=== PATIENT | male | born 1985 | race Caucasian/White ===

== ENCOUNTER 2017-05-08 13:49 | Emergency (ER) | payer SELFPAY ==
[~2017-05-08] VITALS: Ht 167.6 cm; Wt 79.0 kg
[~2017-05-08 13:49] MED LIST: AMOXICILLIN500 MG PO; LORTAB 7.5-3251 TAB PO; MOTRIN800 MG PO; PHENERGAN12.5 MG/TA PO
[2017-05-08 16:43] LABS: HEMATOCRIT 45.8 % (39.0-50.0); HEMOGLOBIN 15.2 g/dl (14.0-18.0); IMMATURE GRANULOCYTES 0.4 % (0.0-1.0); MEAN CELL VOLUME 88.4 fL CALC (80.0-100.0); MEAN CORPUSCULAR HGB 29.3 pG CALC (26.0-32.0); MEAN CORPUSCULAR HGB CONC 33.2 g/L CALC (32.0-36.0); NEUT# 2.78 thou/uL (1.82-7.42); RED BLOOD COUNT 5.18 mill/uL (4.70-6.10); RED CELL DISTRI WIDTH 13.4 % (11.5-15.5)
[2017-05-08 16:44] LABS: URINE BILIRUBIN - DIPSTICK NEGATIVE (NEGATIVE); URINE BLOOD DIPSTICK NEGATIVE (NEGATIVE); URINE COLOR YELLOW; URINE GLUCOSE - DIPSTICK NEGATIVE (NEGATIVE); URINE KETONE NEGATIVE (NEGATIVE); URINE LEUK ESTERASE NEGATIVE (NEGATIVE); URINE NITRITE - DIPSTICK NEGATIVE (Negative); URINE PH 6.5 (4.5-8.0); URINE PROTEIN - DIPSTICK NEGATIVE (NEG-TRACE); URINE SPECIFIC GRAVITY <=1.005; URINE UROBILINOGEN - DIPSTICK 0.2 E.U./dL (0.2)
[2017-05-08 16:48] LABS: URINE CLARITY CLEAR
[2017-05-08 16:57] LABS: ALBUMIN 4.6 g/dL (3.2-5.0); ALKALINE PHOSPHATASE 62 u/l (38-126); ANION GAP 17 (6-22 (CALC)); BILIRUBIN, TOTAL 0.9 mg/dL (0.0-1.4); BUN 10 mg/dL (9-20); BUN/CREATININE RATIO 10 (12-20 (CALC)); CALCIUM 9.9 mg/dL (8.4-10.2); CARBON DIOXIDE 27 mmol/l (22-30); CHLORIDE 101 mmol/l (95-108); GFR > 60 ML/MIN (>=60 (CALC)); GFR FOR AFR.AMER. > 60 ML/MIN (>=60 (CALC)); GLUCOSE 81 mg/dL (75-110); LIPASE 127 u/l (23-300); POTASSIUM 4.2 mmol/l (3.5-5.1); SGOT/AST 23 u/l (17-59); SGPT/ALT 25 u/l (21-72); SODIUM 141 mmol/l (137-146); TOTAL PROTEIN 7.4 g/dL (6.3-8.2)
[2017-05-08 16:59] LABS: INFLUENZA A NONE DETECTED (NONE DETECT); INFLUENZA B NONE DETECTED (NONE DETECT)
[2017-05-08 18:02] VITALS: BP 134/77
== END 2017-05-08 18:09 | disposition home or self-care (01) | DRG 153 ==
LOC: ED 13:49
PROVIDERS: Family Medicine
DX: J06.9 Acute upper respiratory infection, unspecified (principal); F17.290 Nicotine dependence, other tobacco product, uncomplicated; K52.9 Noninfective gastroenteritis and colitis, unspecified; R10.31 Right lower quadrant pain; R50.9 Fever, unspecified; R11.2 Nausea with vomiting, unspecified; R05 Cough; R07.81 Pleurodynia
CPT/HCPCS: Q9967

== ENCOUNTER 2017-05-12 17:49 | Emergency (ER) | payer SELFPAY ==
[~2017-05-12] VITALS: Ht 167.6 cm; Wt 79.0 kg
[2017-05-12 18:28] VITALS: BP 112/77
== END 2017-05-12 19:28 | disposition left against medical advice (07) | DRG 951 ==
LOC: ED 17:49 → LWOBS 19:28
DX: Z91.19 Patient's noncompliance with other medical treatment and regimen (principal)

== ENCOUNTER 2017-08-16 17:37 | Emergency (ER) | payer SELFPAY ==
[~2017-08-16] VITALS: Ht 167.6 cm; Wt 77.3 kg
[2017-08-16 18:11] LABS: HEMATOCRIT 46.8 % (39.0-50.0); HEMOGLOBIN 15.5 g/dl (14.0-18.0); IMMATURE GRANULOCYTES 0.3 % (0.0-1.0); MEAN CELL VOLUME 88.6 fL CALC (80.0-100.0); MEAN CORPUSCULAR HGB 29.4 pG CALC (26.0-32.0); MEAN CORPUSCULAR HGB CONC 33.1 g/L CALC (32.0-36.0); NEUT# 7.12 thou/uL (1.82-7.42); RED BLOOD COUNT 5.28 mill/uL (4.70-6.10); RED CELL DISTRI WIDTH 13.1 % (11.5-15.5)
[2017-08-16 18:32] LABS: ALBUMIN 4.5 g/dL (3.2-5.0); ALKALINE PHOSPHATASE 63 u/l (38-126); ANION GAP 19 (6-22 (CALC)); BILIRUBIN, TOTAL 1.1 mg/dL (0.0-1.4); BUN 14 mg/dL (9-20); BUN/CREATININE RATIO 13 (12-20 (CALC)); CARBON DIOXIDE 28 mmol/l (22-30); CHLORIDE 102 mmol/l (95-108); CREATININE 1.1 mg/dL (0.7-1.3); GFR > 60 ML/MIN (>=60 (CALC)); GFR FOR AFR.AMER. > 60 ML/MIN (>=60 (CALC)); LIPASE 85 u/l (23-300); SGOT/AST 29 u/l (17-59); SGPT/ALT 32 u/l (21-72); SODIUM 145 mmol/l (137-146); TOTAL PROTEIN 8.2 g/dL (6.3-8.2)
[2017-08-16] MEDS ORDERED: ONDANSETRON4 MG PO (18:42)
[2017-08-16 18:54] LABS: URINE BILIRUBIN - DIPSTICK NEGATIVE (NEGATIVE); URINE BLOOD DIPSTICK NEGATIVE (NEGATIVE); URINE COLOR YELLOW; URINE GLUCOSE - DIPSTICK NEGATIVE (NEGATIVE); URINE KETONE NEGATIVE (NEGATIVE); URINE LEUK ESTERASE NEGATIVE (NEGATIVE); URINE NITRITE - DIPSTICK NEGATIVE (Negative); URINE PH 5.5 (4.5-8.0); URINE PROTEIN - DIPSTICK NEGATIVE (NEG-TRACE); URINE SPECIFIC GRAVITY >=1.030; URINE UROBILINOGEN - DIPSTICK 0.2 E.U./dL (0.2)
[2017-08-16 18:55] LABS: URINE CLARITY CLEAR
[2017-08-16 19:06] VITALS: BP 84/89
== END 2017-08-16 19:11 | disposition home or self-care (01) | DRG 392 ==
LOC: ED 17:37
PROVIDERS: Family Medicine
DX: R10.11 Right upper quadrant pain (principal); R10.12 Left upper quadrant pain; R11.0 Nausea

== ENCOUNTER 2017-10-22 10:02 | Emergency (ER) | payer SELFPAY ==
[~2017-10-22] VITALS: Ht 167.6 cm; Wt 75.0 kg
[~2017-10-22 10:02] MED LIST changes: +ONDANSETRON4 MG PO
[2017-10-22 10:36] LABS: IMMATURE GRANULOCYTES 0.2 % (0.0-1.0); MEAN CELL VOLUME 85.9 fL CALC (80.0-100.0); MEAN CORPUSCULAR HGB 29.3 pG CALC (26.0-32.0); MEAN CORPUSCULAR HGB CONC 34.1 g/L CALC (32.0-36.0); NEUT# 1.85 thou/uL (1.82-7.42); RED BLOOD COUNT 5.12 mill/uL (4.70-6.10); RED CELL DISTRI WIDTH 13.2 % (11.5-15.5)
[2017-10-22 11:00] LABS: URINE BILIRUBIN - DIPSTICK NEGATIVE (NEGATIVE); URINE BLOOD DIPSTICK NEGATIVE (NEGATIVE); URINE COLOR YELLOW; URINE GLUCOSE - DIPSTICK NEGATIVE (NEGATIVE); URINE KETONE NEGATIVE (NEGATIVE); URINE LEUK ESTERASE NEGATIVE (NEGATIVE); URINE NITRITE - DIPSTICK NEGATIVE (Negative); URINE PROTEIN - DIPSTICK NEGATIVE (NEG-TRACE)
[2017-10-22 11:02] LABS: URINE CLARITY CLEAR
[2017-10-22 11:04] LABS: ALBUMIN 4.1 g/dL (3.2-5.0); ALKALINE PHOSPHATASE 57 u/l (38-126); ANION GAP 15 (6-22 (CALC)); BILIRUBIN, TOTAL 0.9 mg/dL (0.0-1.4); BUN 11 mg/dL (9-20); BUN/CREATININE RATIO 13 (12-20 (CALC)); CARBON DIOXIDE 24 mmol/l (22-30); CHLORIDE 105 mmol/l (95-108); CREATININE 0.9 mg/dL (0.7-1.3); GFR > 60 ML/MIN (>=60 (CALC)); GFR FOR AFR.AMER. > 60 ML/MIN (>=60 (CALC)); LIPASE 95 u/l (23-300); POTASSIUM 3.8 mmol/l (3.5-5.1); SGOT/AST 19 u/l (17-59); SGPT/ALT 28 u/l (21-72); SODIUM 140 mmol/l (137-146); TOTAL PROTEIN 7.2 g/dL (6.3-8.2)
[2017-10-22] MEDS ORDERED: COLACE100 MG PO (11:17)
[2017-10-22] MEDS ORDERED: PROCTOFOAM HC10 GM RE (11:17)
[2017-10-22 11:45] VITALS: BP 128/80
== END 2017-10-22 13:32 | disposition home or self-care (01) | DRG 395 ==
LOC: ED 10:02
PROVIDERS: Emergency Medicine
DX: K64.9 Unspecified hemorrhoids (principal); E11.9 Type 2 diabetes mellitus without complications; F17.210 Nicotine dependence, cigarettes, uncomplicated

== ENCOUNTER 2017-12-29 06:56 | Emergency (ER) | payer OTHER ==
[~2017-12-29] VITALS: Ht 167.6 cm; Wt 75.0 kg
[~2017-12-29 06:56] MED LIST changes: +COLACE100 MG PO; +PROCTOFOAM HC10 GM RE
[2017-12-29 07:47] LABS: HEMATOCRIT 47.7 % (39.0-50.0); IMMATURE GRANULOCYTES 0.4 % (0.0-5.0); MEAN CELL VOLUME 88.7 fL CALC (80.0-100.0); MEAN CORPUSCULAR HGB 29.7 pG CALC (26.0-32.0); MEAN CORPUSCULAR HGB CONC 33.5 g/L CALC (32.0-36.0); NEUT# 2.51 thou/uL (1.82-7.42); RED BLOOD COUNT 5.38 mill/uL (4.70-6.10); RED CELL DISTRI WIDTH 13.2 % (11.5-15.5)
[2017-12-29 08:00] LABS: ALBUMIN 4.4 g/dL (3.2-5.0); ALKALINE PHOSPHATASE 71 u/l (38-126); ANION GAP 16 (6-22 (CALC)); BILIRUBIN, TOTAL 0.9 mg/dL (0.0-1.4); BUN 14 mg/dL (9-20); BUN/CREATININE RATIO 13 (12-20 (CALC)); CARBON DIOXIDE 28 mmol/l (22-30); CHLORIDE 101 mmol/l (95-108); CREATININE 1.1 mg/dL (0.7-1.3); GFR > 60 ML/MIN (>=60 (CALC)); GFR FOR AFR.AMER. > 60 ML/MIN (>=60 (CALC)); SGOT/AST 19 u/l (17-59); SGPT/ALT 24 u/l (21-72); SODIUM 141 mmol/l (137-146); TOTAL PROTEIN 7.6 g/dL (6.3-8.2)
[2017-12-29] MEDS ORDERED: ONDANSETRON4 MG PO (08:31)
[2017-12-29] MEDS ORDERED: BENTYL10 MG PO (08:31)
[2017-12-29 08:46] VITALS: BP 128/91
[2017-12-29 09:05] LABS: C. DIFFICILE TOXIN A&B NEGATIVE (NEGATIVE)
== END 2017-12-29 08:53 | disposition home or self-care (01) | DRG 392 ==
LOC: ED 06:56
PROVIDERS: Emergency Medicine
DX: K52.9 Noninfective gastroenteritis and colitis, unspecified (principal); E11.9 Type 2 diabetes mellitus without complications; F17.220 Nicotine dependence, chewing tobacco, uncomplicated

== ENCOUNTER 2018-05-22 17:21 | Emergency (ER) | payer SELFPAY ==
[~2018-05-22] VITALS: Ht 167.6 cm; Wt 70.0 kg
[~2018-05-22 17:21] MED LIST changes: +BENTYL10 MG PO
[2018-05-22] MEDS ORDERED: PROVENTIL HFA IN (18:55)
[2018-05-22] MEDS ORDERED: ZITHROMAX250 MG PO (18:55)
[2018-05-22 19:10] VITALS: BP 115/81
== END 2018-05-22 19:10 | disposition home or self-care (01) | DRG 203 ==
LOC: ED 17:21
DX: J40 Bronchitis, not specified as acute or chronic (principal); F17.200 Nicotine dependence, unspecified, uncomplicated; R09.81 Nasal congestion; R05 Cough; R50.9 Fever, unspecified; R09.89 Other specified symptoms and signs involving the circulatory and respiratory systems; R51 Headache

== ENCOUNTER 2018-08-30 09:00 | Emergency (ER) | payer OTHER ==
[~2018-08-30] VITALS: Ht 167.6 cm; Wt 80.0 kg
[~2018-08-30 09:00] MED LIST changes: +PROVENTIL HFA IN; +ZITHROMAX250 MG PO
[2018-08-30 10:01] LABS: URINE BILIRUBIN - DIPSTICK NEGATIVE (NEGATIVE); URINE BLOOD DIPSTICK NEGATIVE (NEGATIVE); URINE COLOR YELLOW; URINE GLUCOSE - DIPSTICK NEGATIVE (NEGATIVE); URINE KETONE NEGATIVE (NEGATIVE); URINE LEUK ESTERASE NEGATIVE (NEGATIVE); URINE NITRITE - DIPSTICK NEGATIVE (Negative); URINE PH 5.5 (4.5-8.0); URINE PROTEIN - DIPSTICK NEGATIVE (NEG-TRACE); URINE SPECIFIC GRAVITY >=1.030; URINE UROBILINOGEN - DIPSTICK 0.2 E.U./dL (0.2)
[2018-08-30 10:04] LABS: BARBITURATES NEGATIVE (NEGATIVE); COCAINE NEGATIVE (NEGATIVE); METHADONE NEGATIVE (NEGATIVE); OXCYCODONE NEGATIVE (NEGATIVE); TETRAHYDROCANNABIONOL NEGATIVE (NEGATIVE); TRICYLIC ANTIDEPRESSANTS NEGATIVE (NEGATIVE)
[2018-08-30] MEDS ORDERED: ULTRAM50 MG PO (11:32)
[2018-08-30] MEDS ORDERED: MEDDOSEPAK PO (11:32)
[2018-08-30] MEDS ORDERED: TORADOL PO (11:32)
[2018-08-30 12:02] VITALS: BP 112/74
== END 2018-08-30 12:02 | disposition home or self-care (01) | DRG 563 ==
LOC: ED 09:00
PROVIDERS: Emergency Medicine
DX: S39.012A Strain of muscle, fascia and tendon of lower back, initial encounter (principal); E11.9 Type 2 diabetes mellitus without complications; F17.210 Nicotine dependence, cigarettes, uncomplicated; X50.0XXA Overexertion from strenuous movement or load, initial encounter

== ENCOUNTER 2018-12-07 19:15 | Emergency (ER) | payer OTHER ==
[~2018-12-07] VITALS: Ht 167.6 cm; Wt 90.0 kg
[~2018-12-07 19:15] MED LIST changes: +MEDDOSEPAK PO; +TORADOL PO; +ULTRAM50 MG PO
[2018-12-07] MEDS ORDERED: FLOXIN OTIC0.3 % AS (19:39)
[2018-12-07] MEDS ORDERED: AMOX/K CLAV875 M1 PO (19:39)
[2018-12-07] MEDS ORDERED: ULTRAM50 M1 PO (19:39)
[2018-12-07 19:42] VITALS: BP 119/87
== END 2018-12-07 19:55 | disposition home or self-care (01) | DRG 153 ==
LOC: ED 19:15
DX: H66.92 Otitis media, unspecified, left ear (principal); E11.9 Type 2 diabetes mellitus without complications; F17.220 Nicotine dependence, chewing tobacco, uncomplicated

== ENCOUNTER 2019-03-02 08:37 | Emergency (ER) | payer SELFPAY ==
[~2019-03-02] VITALS: Ht 167.6 cm; Wt 75.0 kg
[~2019-03-02 08:37] MED LIST changes: +AMOX/K CLAV875 M1 PO; +FLOXIN OTIC0.3 % AS; +ULTRAM50 M1 PO
[2019-03-02] MEDS ORDERED: ONDANSETRON4 MG PO (10:16)
[2019-03-02 10:29] VITALS: BP 115/71
== END 2019-03-02 10:29 | disposition home or self-care (01) | DRG 153 ==
LOC: ED 08:37
DX: J06.9 Acute upper respiratory infection, unspecified (principal)

== ENCOUNTER 2019-07-20 | Emergency (ER) | payer SELFPAY ==
[2019-07-20 13:44] LABS: URINE BILIRUBIN - DIPSTICK NEGATIVE (NEGATIVE); URINE BLOOD DIPSTICK NEGATIVE (NEGATIVE); URINE COLOR YELLOW; URINE GLUCOSE - DIPSTICK NEGATIVE (NEGATIVE); URINE KETONE NEGATIVE (NEGATIVE); URINE LEUK ESTERASE NEGATIVE (NEGATIVE); URINE NITRITE - DIPSTICK NEGATIVE (Negative); URINE PH 5.5 (4.5-8.0); URINE PROTEIN - DIPSTICK NEGATIVE (NEG-TRACE); URINE UROBILINOGEN - DIPSTICK 0.2 E.U./dL (0.2)
[2019-07-20 13:44] LABS: HEMATOCRIT 46.4 % (39.0-50.0); HEMOGLOBIN 15.5 g/dl (14.0-18.0); IMMATURE GRANULOCYTES 0.3 % (0.0-5.0); MEAN CELL VOLUME 88.2 fL CALC (80.0-100.0); MEAN CORPUSCULAR HGB 29.5 pG CALC (26.0-32.0); MEAN CORPUSCULAR HGB CONC 33.4 g/dL CAL (32.0-36.0); NEUT# 3.49 thou/uL (1.82-7.42); RED BLOOD COUNT 5.26 mill/uL (4.70-6.10); RED CELL DISTRI WIDTH 12.6 % (11.5-15.5)
[2019-07-20 14:04] LABS: ALBUMIN 4.2 g/dL (3.2-5.0); ALKALINE PHOSPHATASE 57 u/l (38-126); ANION GAP 11 (6-22 (CALC)); BILIRUBIN, TOTAL 1.2 mg/dL (0.0-1.4); BUN 13 mg/dL (9-20); BUN/CREATININE RATIO 12 (12-20 (CALC)); CARBON DIOXIDE 29 mmol/l (22-30); CHLORIDE 103 mmol/l (95-108); CREATININE 1.1 mg/dL (0.7-1.3); GFR > 60 ML/MIN (>=60 (CALC)); GFR FOR AFR.AMER. > 60 ML/MIN (>=60 (CALC)); SGOT/AST 22 u/l (17-59); SODIUM 139 mmol/l (137-146); TOTAL PROTEIN 7.3 g/dL (6.3-8.2)
[2019-07-20] MEDS ORDERED: MIRALAX3350 N1 PO ×2 (14:42)
[2019-07-20] MEDS ORDERED: ONDANSETRON4 MG PO ×2 (14:42)
== END 2019-07-20 14:58 | disposition home or self-care (01) | DRG 392 ==
PROVIDERS: Emergency Medicine
DX: K59.00 Constipation, unspecified (principal); E11.9 Type 2 diabetes mellitus without complications; F17.200 Nicotine dependence, unspecified, uncomplicated

== ENCOUNTER 2019-11-11 11:03 | Emergency (ER) | payer OTHER ==
[~2019-11-11] VITALS: Ht 167.6 cm; Wt 79.0 kg
[~2019-11-11 11:03] MED LIST changes: +MIRALAX3350 N1 PO
[2019-11-11 12:09] LABS: HEMATOCRIT 44.6 % (39.0-50.0); HEMOGLOBIN 14.7 g/dl (14.0-18.0); IMMATURE GRANULOCYTES 0.4 % (0.0-5.0); MEAN CELL VOLUME 88.1 fL CALC (80.0-100.0); MEAN CORPUSCULAR HGB 29.1 pG CALC (26.0-32.0); NEUT# 2.71 thou/uL (1.82-7.42); RED BLOOD COUNT 5.06 mill/uL (4.70-6.10); RED CELL DISTRI WIDTH 12.9 % (11.5-15.5)
[2019-11-11 12:28] LABS: ALBUMIN 4.4 g/dL (3.2-5.0); ALKALINE PHOSPHATASE 61 u/l (38-126); ANION GAP 10 (6-22 (CALC)); BILIRUBIN, TOTAL 0.9 mg/dL (0.0-1.4); BUN 10 mg/dL (9-20); BUN/CREATININE RATIO 11 (12-20 (CALC)); CARBON DIOXIDE 26 mmol/l (22-30); CHLORIDE 104 mmol/l (95-108); CREATININE 0.9 mg/dL (0.7-1.3); GFR > 60 ML/MIN (>=60 (CALC)); GFR FOR AFR.AMER. > 60 ML/MIN (>=60 (CALC)); POTASSIUM 3.8 mmol/l (3.5-5.1); SGOT/AST 31 u/l (17-59); SODIUM 136 mmol/l (137-146); TOTAL PROTEIN 7.3 g/dL (6.3-8.2)
[2019-11-11 12:32] LABS: ACT PARTIAL THROMBO TIME 26.3 SECONDS (20.0-32.5)
[2019-11-11 12:37] LABS: D-DIMER 0.17 mg/L (0.19-0.60)
[2019-11-11 13:40] VITALS: BP 136/89
== END 2019-11-11 13:40 | disposition home or self-care (01) | DRG 153 ==
LOC: ED 11:03
DX: J06.9 Acute upper respiratory infection, unspecified (principal); R73.03 Prediabetes; F17.290 Nicotine dependence, other tobacco product, uncomplicated; Z20.828 Contact with and (suspected) exposure to other viral communicable diseases

== ENCOUNTER 2020-01-09 02:39 | Emergency (ER) | payer OTHER ==
[~2020-01-09] VITALS: Ht 165.1 cm; Wt 77.2 kg
[2020-01-09 03:24] LABS: HEMOGLOBIN 16.2 g/dl (14.0-18.0); IMMATURE GRANULOCYTES 0.2 % (0.0-5.0); MEAN CELL VOLUME 88.2 fL CALC (80.0-100.0); MEAN CORPUSCULAR HGB 28.1 pG CALC (26.0-32.0); MEAN CORPUSCULAR HGB CONC 31.9 g/dL CAL (32.0-36.0); NEUT# 7.35 thou/uL (1.82-7.42); RED BLOOD COUNT 5.76 mill/uL (4.70-6.10)
[2020-01-09 03:32] LABS: HEMATOCRIT 50.8 % (39.0-50.0)
[2020-01-09 03:47] LABS: ALBUMIN 4.7 g/dL (3.2-5.0); ALKALINE PHOSPHATASE 69 u/l (38-126); AMYLASE 55 u/l (30-110); ANION GAP 15 (6-22 (CALC)); BUN 14 mg/dL (9-20); BUN/CREATININE RATIO 13 (12-20 (CALC)); CARBON DIOXIDE 28 mmol/l (22-30); CHLORIDE 101 mmol/l (95-108); CREATININE 1.1 mg/dL (0.7-1.3); GFR > 60 ML/MIN (>=60 (CALC)); GFR FOR AFR.AMER. > 60 ML/MIN (>=60 (CALC)); LIPASE 136 u/l (23-300); POTASSIUM 4.1 mmol/l (3.5-5.1); SGOT/AST 28 u/l (17-59); SODIUM 141 mmol/l (137-146); TOTAL PROTEIN 7.9 g/dL (6.3-8.2)
[2020-01-09 03:49] LABS: BILIRUBIN, TOTAL 1.3 mg/dL (0.0-1.4)
[2020-01-09 03:53] LABS: URINE BILIRUBIN - DIPSTICK NEGATIVE (NEGATIVE); URINE BLOOD DIPSTICK NEGATIVE (NEGATIVE); URINE COLOR YELLOW; URINE GLUCOSE - DIPSTICK NEGATIVE (NEGATIVE); URINE KETONE NEGATIVE (NEGATIVE); URINE LEUK ESTERASE NEGATIVE (NEGATIVE); URINE NITRITE - DIPSTICK NEGATIVE (Negative); URINE PROTEIN - DIPSTICK NEGATIVE (NEG-TRACE); URINE UROBILINOGEN - DIPSTICK 0.2 E.U./dL (0.2)
[2020-01-09] MEDS ORDERED: ONDANSETRON4 MG PO (05:59)
[2020-01-09] MEDS ORDERED: LEVAQUIN500 MG PO (05:59)
[2020-01-09 07:37] VITALS: BP 100/58
== END 2020-01-09 07:10 | disposition home or self-care (01) | DRG 195 ==
LOC: ED 02:39
DX: J18.9 Pneumonia, unspecified organism (principal); E11.9 Type 2 diabetes mellitus without complications; Z20.828 Contact with and (suspected) exposure to other viral communicable diseases
CPT/HCPCS: Q9967; S0164

== ENCOUNTER 2020-06-24 18:20 | Emergency (ER) | payer OTHER ==
[~2020-06-24] VITALS: Ht 165.1 cm; Wt 79.0 kg
[~2020-06-24 18:20] MED LIST changes: +LEVAQUIN500 MG PO
[2020-06-24 19:00] VITALS: BP 120/81
== END 2020-06-24 19:20 | disposition left against medical advice (07) | DRG 951 ==
LOC: ED 18:20 → LWOBS 19:20
DX: Z53.21 Procedure and treatment not carried out due to patient leaving prior to being seen by health care provider (principal)

== ENCOUNTER 2020-07-23 | Emergency (ER) | payer OTHER | END 2020-07-23 10:17 | disposition home or self-care (01) | DRG 204 | DX: R05 Cough (principal); J02.9 Acute pharyngitis, unspecified; R68.83 Chills (without fever); R07.89 Other chest pain; R43.8 Other disturbances of smell and taste; E11.9 Type 2 diabetes mellitus without complications; F17.200 Nicotine dependence, unspecified, uncomplicated; Z20.822 Contact with and (suspected) exposure to COVID-19 ==

== ENCOUNTER 2020-12-09 11:09 | Emergency (ER) | payer OTHER ==
[~2020-12-09] VITALS: Ht 165.1 cm; Wt 85.0 kg
[2020-12-09 11:21] VITALS: BP 122/98
[2020-12-09 12:47] LABS: HEMOGLOBIN 14.6 g/dl (14.0-18.0); IMMATURE GRANULOCYTES 0.4 % (0.0-5.0); MEAN CELL VOLUME 89.3 fL CALC (80.0-100.0); MEAN CORPUSCULAR HGB 29.4 pG CALC (26.0-32.0); NEUT# 2.64 thou/uL (1.82-7.42); RED BLOOD COUNT 4.96 mill/uL (4.70-6.10); RED CELL DISTRI WIDTH 12.8 % (11.5-15.5)
[2020-12-09 12:51] LABS: HEMATOCRIT 44.3 % (39.0-50.0)
[2020-12-09 13:02] LABS: ALBUMIN 4.3 g/dL (3.2-5.0); ALKALINE PHOSPHATASE 50 u/l (38-126); ANION GAP 14 (6-22 (CALC)); BILIRUBIN, TOTAL 0.8 mg/dL (0.0-1.4); BUN 10 mg/dL (9-20); BUN/CREATININE RATIO 11 (12-20 (CALC)); CARBON DIOXIDE 27 mmol/l (22-30); CHLORIDE 101 mmol/l (95-108); GFR > 60 ML/MIN (>=60 (CALC)); GFR FOR AFR.AMER. > 60 ML/MIN (>=60 (CALC)); LIPASE 71 u/l (23-300); POTASSIUM 3.9 mmol/l (3.5-5.1); SGOT/AST 24 u/l (17-59); SODIUM 138 mmol/l (137-146); TOTAL PROTEIN 7.3 g/dL (6.3-8.2)
== END 2020-12-09 14:20 | disposition home or self-care (01) | DRG 313 ==
LOC: ED 11:09
DX: R07.89 Other chest pain (principal); E11.9 Type 2 diabetes mellitus without complications; F17.200 Nicotine dependence, unspecified, uncomplicated; Z20.822 Contact with and (suspected) exposure to COVID-19

== ENCOUNTER 2021-01-27 06:41 | Emergency (ER) | payer OTHER ==
[~2021-01-27] VITALS: Ht 165.1 cm; Wt 70.0 kg
[2021-01-27] MEDS ORDERED: ZOFRAN4 MG/TAB PO (07:57)
[2021-01-27] MEDS ORDERED: TESSALON PERLE100 MG PO (07:57)
[2021-01-27] MEDS ORDERED: ZPAK PO (07:57)
[2021-01-27 08:04] VITALS: BP 118/74
== END 2021-01-27 08:18 | disposition home or self-care (01) | DRG 179 ==
LOC: ED 06:41
DX: U07.1 COVID-19 (principal); J40 Bronchitis, not specified as acute or chronic; E11.9 Type 2 diabetes mellitus without complications; F17.200 Nicotine dependence, unspecified, uncomplicated

== ENCOUNTER 2021-08-01 09:15 | Emergency (ER) | payer OTHER ==
[2021-08-01] VITALS (8 sets, daily range): BP systolic 103–130; BP diastolic 70–92
[~2021-08-01] VITALS: Ht 165.1 cm; Wt 75.0 kg
[~2021-08-01 09:15] MED LIST changes: +TESSALON PERLE100 MG PO; +ZOFRAN4 MG/TAB PO; +ZPAK PO
[2021-08-01 09:53] LABS: HEMATOCRIT 44.5 % (39.0-50.0); HEMOGLOBIN 14.6 g/dl (14.0-18.0); IMMATURE GRANULOCYTES 0.4 % (0.0-5.0); MEAN CELL VOLUME 89.7 fL CALC (80.0-100.0); MEAN CORPUSCULAR HGB 29.4 pG CALC (26.0-32.0); MEAN CORPUSCULAR HGB CONC 32.8 g/dL CAL (32.0-36.0); NEUT# 2.15 thou/uL (1.82-7.42); RED BLOOD COUNT 4.96 mill/uL (4.70-6.10); RED CELL DISTRI WIDTH 13.8 % (11.5-15.5)
[2021-08-01 09:54] LABS: ALBUMIN 4.4 g/dL (3.2-5.0); ALKALINE PHOSPHATASE 56 u/l (38-126); ANION GAP 12 (6-22 (CALC)); BUN 11 mg/dL (9-20); BUN/CREATININE RATIO 12 (12-20 (CALC)); CARBON DIOXIDE 26 mmol/l (22-30); CHLORIDE 104 mmol/l (95-108); GFR > 60 ML/MIN (>=60 (CALC)); GFR FOR AFR.AMER. > 60 ML/MIN (>=60 (CALC)); POTASSIUM 3.9 mmol/l (3.5-5.1); SGOT/AST 25 u/l (17-59); SODIUM 139 mmol/l (137-146); TOTAL PROTEIN 7.7 g/dL (6.3-8.2)
[2021-08-01] MEDS ORDERED: PROVENTIL108 MCG/AC PO (11:20)
[2021-08-01] MEDS ORDERED: PREDNISONE50 MG PO (11:20)
[2021-08-01] MEDS ORDERED: ZPAK PO (11:20)
== END 2021-08-01 11:34 | disposition home or self-care (01) | DRG 153 ==
LOC: ED 09:15
PROVIDERS: Family Medicine
DX: J06.9 Acute upper respiratory infection, unspecified (principal); R10.32 Left lower quadrant pain; E11.9 Type 2 diabetes mellitus without complications; F17.200 Nicotine dependence, unspecified, uncomplicated; Z20.822 Contact with and (suspected) exposure to COVID-19
CPT/HCPCS: Q9967

== ENCOUNTER 2022-01-09 08:46 | Emergency (ER) | payer SELFPAY ==
[~2022-01-09] VITALS: Ht 167.6 cm; Wt 77.1 kg
[~2022-01-09 08:46] MED LIST changes: +PREDNISONE50 MG PO; +PROVENTIL108 MCG/AC PO
[2022-01-09 08:52] VITALS: BP 118/81
[2022-01-09 09:00] VITALS: BP 113/73
[2022-01-09 09:15] VITALS: BP 114/72
[2022-01-09 09:30] VITALS: BP 113/76
[2022-01-09] MEDS ORDERED: AMOXICILLIN500 MG PO (09:33)
[2022-01-09] MEDS ORDERED: PAXLOVID PO (09:33)
[2022-01-09 10:06] VITALS: BP 113/76
== END 2022-01-09 10:19 | disposition home or self-care (01) | DRG 179 ==
LOC: ED 08:46
DX: U07.1 COVID-19 (principal); J02.9 Acute pharyngitis, unspecified; E11.9 Type 2 diabetes mellitus without complications

== ENCOUNTER 2022-04-24 22:37 | Emergency (ER) | payer SELFPAY ==
[~2022-04-24] VITALS: Ht 167.6 cm; Wt 81.8 kg
[~2022-04-24 22:37] MED LIST changes: +PAXLOVID PO
[2022-04-24 23:07] VITALS: BP 132/87
[2022-04-24 23:15] VITALS: BP 127/95
[2022-04-24] MEDS ORDERED: GENTAMICIN SULF5 ML OS (23:25)
[2022-04-24 23:30] VITALS: BP 118/86
[2022-04-24 23:45] VITALS: BP 120/89
[2022-04-25 00:18] VITALS: BP 120/89
== END 2022-04-25 00:28 | disposition home or self-care (01) | DRG 125 ==
LOC: ED 22:37
DX: S05.02XA Injury of conjunctiva and corneal abrasion without foreign body, left eye, initial encounter (principal)

== ENCOUNTER 2022-06-30 05:20 | Emergency (ER) | payer OTHER ==
[~2022-06-30] VITALS: Ht 167.6 cm; Wt 81.0 kg
[2022-06-30] VITALS (13 sets, daily range): BP systolic 112–140; BP diastolic 82–104
[~2022-06-30 05:20] MED LIST changes: +GENTAMICIN SULF5 ML OS
[2022-06-30 05:56] LABS: BASO% 0.7 % (0-3); EOS% 2.9 % (0-8); HEMATOCRIT 48.9 % (39.0-50.0); HEMOGLOBIN 15.8 g/dl (14.0-18.0); IMMATURE GRANULOCYTES 0.2 % (0.0-5.0); LYMPH% 35.4 % (15-41); MEAN CELL VOLUME 88.6 fL CALC (80.0-100.0); MEAN CORPUSCULAR HGB 28.6 pG CALC (26.0-32.0); MEAN CORPUSCULAR HGB CONC 32.3 g/dL CAL (32.0-36.0); NEUT# 2.81 thou/uL (1.82-7.42); NEUT% 51.8 % (42-76); RED BLOOD COUNT 5.52 mill/uL (4.70-6.10); RED CELL DISTRI WIDTH 13.2 % (11.5-15.5)
[2022-06-30 05:57] LABS: URINE BILIRUBIN - DIPSTICK NEGATIVE (NEGATIVE); URINE BLOOD DIPSTICK NEGATIVE (NEGATIVE); URINE COLOR YELLOW; URINE GLUCOSE - DIPSTICK NEGATIVE (NEGATIVE); URINE KETONE NEGATIVE (NEGATIVE); URINE LEUK ESTERASE NEGATIVE (NEGATIVE); URINE PROTEIN - DIPSTICK NEGATIVE (NEG-TRACE); URINE SPECIFIC GRAVITY 1.025; URINE UROBILINOGEN - DIPSTICK 0.2 E.U./dL (0.2)
[2022-06-30 05:58] LABS: URINE NITRITE - DIPSTICK NEGATIVE (Negative)
[2022-06-30 06:10] LABS: ALBUMIN 4.7 g/dL (3.2-5.0); ALKALINE PHOSPHATASE 66 u/l (38-126); AMYLASE 69 u/l (30-110); ANION GAP 13 (6-22 (CALC)); BILIRUBIN, TOTAL 0.7 mg/dL (0.2-1.3); BUN 12 mg/dL (9-20); BUN/CREATININE RATIO 11 (12-20 (CALC)); CARBON DIOXIDE 29 mmol/l (22-30); CHLORIDE 103 mmol/l (95-108); CREATININE 1.2 mg/dL (0.7-1.3); ETHYL ALCOHOL 0 mg/dl (0-30); GFR FOR AFR.AMER. > 60 ML/MIN (>=60 (CALC)); GFR OTHER RACES > 60 ML/MIN (>=60 (CALC)); LIPASE 107 u/l (23-300); POTASSIUM 4.1 mmol/l (3.5-5.1); SGOT/AST 32 u/l (17-59); SODIUM 141 mmol/l (137-146)
[2022-06-30] MEDS ORDERED: PROTONIX40 M2 PO (08:39)
== END 2022-06-30 08:55 | disposition home or self-care (01) | DRG 392 ==
LOC: ED 05:20
PROVIDERS: Emergency Medicine
DX: R10.13 Epigastric pain (principal); E11.9 Type 2 diabetes mellitus without complications
CPT/HCPCS: Q9967; S0164

== ENCOUNTER → 2022-07-28 | Day surgery (SDC) | payer OTHER ==
[~2022-07-28] MED LIST changes: +NEXIUM40 M1 PO; +PROTONIX40 M2 PO
[2022-07-28 09:06] VITALS: BP 111/79
== END | disposition home or self-care (01) | DRG 379 ==
LOC: ENDO 07:05 → ORM 08:00
PROVIDERS: ATTEND Surgery
PROC: 0DB98ZX Excision of Duodenum, Via Natural or Artificial Opening Endoscopic, Diagnostic (ICD-10-PCS; principal; 2022-07-28)
PROC: 0DB78ZX Excision of Stomach, Pylorus, Via Natural or Artificial Opening Endoscopic, Diagnostic (ICD-10-PCS; 2022-07-28)
PROC: 0DB58ZX Excision of Esophagus, Via Natural or Artificial Opening Endoscopic, Diagnostic (ICD-10-PCS; 2022-07-28)
DX: K29.51 Unspecified chronic gastritis with bleeding (principal); K29.81 Duodenitis with bleeding; K21.01 Gastro-esophageal reflux disease with esophagitis, with bleeding; K22.11 Ulcer of esophagus with bleeding

== ENCOUNTER 2022-10-13 07:25 | Emergency (ER) | payer OTHER ==
[~2022-10-13] VITALS: Ht 165.1 cm; Wt 81.6 kg
[2022-10-13 07:36] VITALS: BP 127/91
[2022-10-13 08:00] VITALS: BP 128/92
[2022-10-13 08:31] LABS: BASO% 0.9 % (0-3); EOS% 2.4 % (0-8); HEMATOCRIT 45.9 % (39.0-50.0); HEMOGLOBIN 14.8 g/dl (14.0-18.0); IMMATURE GRANULOCYTES 0.2 % (0.0-5.0); LYMPH% 26.8 % (15-41); MEAN CELL VOLUME 88.1 fL CALC (80.0-100.0); MEAN CORPUSCULAR HGB 28.4 pG CALC (26.0-32.0); MEAN CORPUSCULAR HGB CONC 32.2 g/dL CAL (32.0-36.0); MONO% 8.9 % (2-13); NEUT# 3.5 thou/uL (1.82-7.42); NEUT% 60.8 % (42-76); RED BLOOD COUNT 5.21 mill/uL (4.70-6.10)
[2022-10-13 09:40] VITALS: BP 120/82
[2022-10-13 10:00] VITALS: BP 117/85
[2022-10-13] MEDS ORDERED: KEFLEX500 MG PO (10:28)
[2022-10-13 10:40] VITALS: BP 117/85
== END 2022-10-13 10:40 | disposition home or self-care (01) | DRG 605 ==
LOC: ED 07:25
PROVIDERS: Family Medicine
DX: S90.411A Abrasion, right great toe, initial encounter (principal); E11.9 Type 2 diabetes mellitus without complications; F17.290 Nicotine dependence, other tobacco product, uncomplicated; L08.9 Local infection of the skin and subcutaneous tissue, unspecified; X58.XXXA Exposure to other specified factors, initial encounter

== ENCOUNTER 2023-10-13 06:41 | Observation (INO) | payer OTHER ==
[~2023-10-13] VITALS: Ht 165.1 cm; Wt 77.0 kg
[2023-10-13] VITALS (42 sets, daily range): BP systolic 83–117; BP diastolic 50–76
[~2023-10-13 06:41] MED LIST changes: +BACTRIM DS1 TAB PO; +CIPROFLOXACN500 MG PO; +IBUPROFEN600 MG PO; +KEFLEX500 MG PO; +METRONIDAZOLE500 MG PO
[2023-10-13] MEDS ORDERED: ASPIRIN 81 MG/TAB PO ONE (07:05)
[2023-10-13 07:14] LABS: BASO% 0.3 % (0-3); EOS% 0.2 % (0-8); IMMATURE GRANULOCYTES 0.1 % (0.0-5.0); MEAN CELL VOLUME 88.4 fL CALC (80.0-100.0); MEAN CORPUSCULAR HGB 28.8 pG CALC (26.0-32.0); MEAN CORPUSCULAR HGB CONC 32.6 g/dL CAL (32.0-36.0); MONO% 6.9 % (2-13); NEUT# 9.44 thou/uL (1.82-7.42); NEUT% 86.5 % (42-76); RED BLOOD COUNT 5.59 mill/uL (4.70-6.10); RED CELL DISTRI WIDTH 13.6 % (11.5-15.5)
[2023-10-13] MEDS ORDERED: ONDANSETRON HCl 4 MG/2 ML SDV IV ONE (07:15)
[2023-10-13] MEDS ORDERED: SODIUM CHLORIDE 0.9% 1,000 ML IV ONE ×3 (07:15→09:30)
[2023-10-13 07:19] LABS: HEMATOCRIT 49.4 % (39.0-50.0); HEMOGLOBIN 16.1 g/dl (14.0-18.0)
[2023-10-13 07:32] LABS: ALKALINE PHOSPHATASE 57 u/l (38-126); ANION GAP 11 (6-22 (CALC)); BUN 20 mg/dL (9-20); BUN/CREATININE RATIO 17 (12-20 (CALC)); CARBON DIOXIDE 25 mmol/l (22-30); CHLORIDE 106 mmol/l (95-108); CREATININE 1.2 mg/dL (0.7-1.3); ESTIMATED GFR 79 ML/MIN (>=90 (CALC)); POTASSIUM 3.9 mmol/l (3.5-5.1); SGOT/AST 38 u/l (17-59); SODIUM 138 mmol/l (137-146)
[2023-10-13 07:33] LABS: ALBUMIN 4.9 g/dL (3.2-5.0); BILIRUBIN, TOTAL 2.3 mg/dL (0.2-1.3); TOTAL PROTEIN 8.7 g/dL (6.3-8.2)
[2023-10-13] MEDS ORDERED: AZITHROMYCIN 500 MG in SODIUM CHLORIDE 0.9% 250 ML IV ONE (08:35)
[2023-10-13] MEDS ORDERED: cefTRIAXone SODIUM 2 GM in SODIUM CHLORIDE 0.9% 100 ML IV ONE (08:35)
[2023-10-13] MEDS ORDERED: ACETAMINOPHEN 325 MG/TAB PO PRN (12:40)
[2023-10-13] MEDS ORDERED: SODIUM CHLORIDE 0.9% 1,000 ML IV PRN (12:40)
[2023-10-13] MEDS ORDERED: IPRATROPIUM-Albuterol 0.5MG-2.5MG/3 ML NEB PRN (12:50)
[2023-10-13] MEDS ORDERED: ONDANSETRON HCl 4 MG/2 ML SDV IV PRN (12:55)
[2023-10-13] MEDS ORDERED: ENOXAPARIN SODIUM 40 MG/0.4 ML SYR SC SCH (21:00)
[2023-10-14 00:25] VITALS: BP 96/55
[2023-10-14 04:07] VITALS: BP 90/59
[2023-10-14 05:12] VITALS: BP 90/59
[2023-10-14 05:54] LABS: BASO% 0.3 % (0-3); EOS% 1.8 % (0-8); LYMPH% 24.6 % (15-41); MEAN CELL VOLUME 91.5 fL CALC (80.0-100.0); MEAN CORPUSCULAR HGB 29.6 pG CALC (26.0-32.0); MEAN CORPUSCULAR HGB CONC 32.4 g/dL CAL (32.0-36.0); MONO% 6.4 % (2-13); NEUT# 4.4 thou/uL (1.82-7.42); NEUT% 66.9 % (42-76); RED BLOOD COUNT 3.98 mill/uL (4.70-6.10); RED CELL DISTRI WIDTH 13.9 % (11.5-15.5)
[2023-10-14 06:00] LABS: HEMATOCRIT 36.4 % (39.0-50.0); HEMOGLOBIN 11.8 g/dl (14.0-18.0)
[2023-10-14 06:01] LABS: CREATININE 1.1 mg/dL (0.7-1.3); MAGNESIUM 1.9 mg/dL (1.6-2.3); POTASSIUM 3.9 mmol/l (3.5-5.1)
[2023-10-14 06:02] LABS: BILIRUBIN, TOTAL 1.1 mg/dL (0.2-1.3); TOTAL PROTEIN 5.4 g/dL (6.3-8.2)
[2023-10-14 06:45] VITALS: BP 93/58
[2023-10-14] MEDS ORDERED: AZITHROMYCIN 500 MG in SODIUM CHLORIDE 0.9% 250 ML IV SCH (09:00)
[2023-10-14 10:34] VITALS: BP 95/49
[2023-10-14] MEDS ORDERED: AZITHROMYCIN500 MG PO (12:14)
[2023-10-14] MEDS ORDERED: OMNICEF300 MG PO (12:14)
[2023-10-14] MEDS ORDERED: PREDNISONE10 MG PO (12:15)
== END 2023-10-14 14:28 | disposition home or self-care (01) | DRG 195 ==
LOC: ED 06:41 → ED-I 10:55 → ED 11:06 → MS2 11:07
PROVIDERS: Family Medicine; Nurse Practitioner Family; ADMIT Internal Medicine; ATTEND Internal Medicine
DX: J18.9 Pneumonia, unspecified organism (principal); I95.9 Hypotension, unspecified; R73.03 Prediabetes; F17.220 Nicotine dependence, chewing tobacco, uncomplicated; Z20.822 Contact with and (suspected) exposure to COVID-19
CPT/HCPCS: G0378; J1650; Q9967

== ENCOUNTER 2024-05-17 06:53 | Emergency (ER) | payer OTHER ==
[2024-05-17] VITALS (9 sets, daily range): BP systolic 92–119; BP diastolic 64–80
[~2024-05-17] VITALS: Ht 165.1 cm; Wt 72.0 kg
[~2024-05-17 06:53] MED LIST changes: +AZITHROMYCIN500 MG PO; +OMNICEF300 MG PO; +PREDNISONE10 MG PO; +TAMSULOSIN0.4 MG PO
[2024-05-17] MEDS ORDERED: ONDANSETRON HCl 4 MG/2 ML SDV IV ONE (07:20)
[2024-05-17] MEDS ORDERED: SODIUM CHLORIDE 0.9% 1,000 ML IV ONE (07:20)
[2024-05-17 07:53] LABS: BASO% 0.2 % (0-3); EOS% 0.8 % (0-8); HEMATOCRIT 46.3 % (39.0-50.0); HEMOGLOBIN 15.2 g/dl (14.0-18.0); IMMATURE GRANULOCYTES 0.2 % (0.0-5.0); LYMPH% 20.5 % (15-41); MEAN CELL VOLUME 89.9 fL CALC (80.0-100.0); MEAN CORPUSCULAR HGB 29.5 pG CALC (26.0-32.0); MEAN CORPUSCULAR HGB CONC 32.8 g/dL CAL (32.0-36.0); NEUT# 3.18 thou/uL (1.82-7.42); NEUT% 67.3 % (42-76); RED BLOOD COUNT 5.15 mill/uL (4.70-6.10); RED CELL DISTRI WIDTH 13.7 % (11.5-15.5)
[2024-05-17 08:03] LABS: ALBUMIN 4.1 g/dL (3.2-5.0); CREATININE 1.2 mg/dL (0.7-1.3); POTASSIUM 3.5 mmol/l (3.5-5.1); TOTAL PROTEIN 7.2 g/dL (6.3-8.2)
[2024-05-17 08:08] LABS: BILIRUBIN, TOTAL 1.7 mg/dL (0.2-1.3)
[2024-05-17] MEDS ORDERED: CIPROFLOXACIN HCL 500 MG/TAB PO ONE (08:25)
[2024-05-17 08:30] LABS: URINE BILIRUBIN - DIPSTICK Negative (NEGATIVE); URINE BLOOD DIPSTICK Negative (NEGATIVE); URINE GLUCOSE - DIPSTICK Negative (NEGATIVE); URINE KETONE Negative (NEGATIVE); URINE LEUK ESTERASE Negative (NEGATIVE); URINE NITRITE - DIPSTICK Negative (Negative); URINE PH 5.5 (4.5-8.0); URINE PROTEIN - DIPSTICK Trace mg/dL (NEG-TRACE); URINE UROBILINOGEN - DIPSTICK 0.2 E.U./dL (0.2)
[2024-05-17 08:35] LABS: URINE COLOR Yellow
[2024-05-17] MEDS ORDERED: LOPERAMIDE HCL 2 MG CAP PO ONE (10:15)
[2024-05-17] MEDS ORDERED: CIPROFLOXACN500 MG PO (10:19)
[2024-05-17] MEDS ORDERED: ZOFRAN4 MG/TAB PO (10:19)
[2024-05-17] MEDS ORDERED: ANTI-DIARRHE2 M1 PO (10:19)
== END 2024-05-17 11:06 | disposition home or self-care (01) | DRG 392 ==
LOC: ED 06:53
PROVIDERS: Emergency Medicine
DX: A08.11 Acute gastroenteropathy due to Norwalk agent (principal); E11.9 Type 2 diabetes mellitus without complications; F17.200 Nicotine dependence, unspecified, uncomplicated
CPT/HCPCS: J2405

== ENCOUNTER 2024-06-02 15:58 | Emergency (ER) | payer OTHER ==
[~2024-06-02] VITALS: Ht 165.1 cm; Wt 81.6 kg
[~2024-06-02 15:58] MED LIST changes: +ANTI-DIARRHE2 M1 PO
[2024-06-02 16:07] VITALS: BP 104/62
[2024-06-02 16:15] VITALS: BP 96/55
[2024-06-02 16:30] VITALS: BP 97/53
[2024-06-02] MEDS ORDERED: OSELTAMIVIR PHOSPHATE 75 MG/TAB CAP PO ONE (16:40)
[2024-06-02] MEDS ORDERED: KETOROLAC TROMETHAMINE 30 MG/ML SDV IM ONE (16:40)
[2024-06-02 16:45] VITALS: BP 106/58
[2024-06-02] MEDS ORDERED: TAM75CAP PO (16:54)
[2024-06-02 17:00] VITALS: BP 105/54
[2024-06-02 17:23] VITALS: BP 105/54
== END 2024-06-02 17:25 | disposition home or self-care (01) | DRG 195 ==
LOC: ED 15:58
DX: J10.1 Influenza due to other identified influenza virus with other respiratory manifestations (principal); E11.9 Type 2 diabetes mellitus without complications; F17.200 Nicotine dependence, unspecified, uncomplicated; Z20.822 Contact with and (suspected) exposure to COVID-19